=== PATIENT | female | born 1960 | race African-American/Black ===

== ENCOUNTER 2017-01-29 21:51 | Emergency (ER) | payer MEDICAID ==
[~2017-01-29] VITALS: Ht 172.7 cm; Wt 86.2 kg
[2017-01-29 21:51] VITALS: BP_SYST 130
[2017-01-29] MEDS ORDERED: IBUPROFEN 800 MG TABLET PO ONE (23:45)
[2017-01-29] MEDS ORDERED: CEPHALEXIN 500 MG CAPSULE PO ONE (23:45)
[2017-01-29 23:54] VITALS: BP_SYST 130
== END 2017-01-29 23:54 | disposition home or self-care (01) ==
LOC: SED 21:51
DX: L03.011 Cellulitis of right finger (principal)
CPT/HCPCS: 99283

== ENCOUNTER 2018-05-08 11:00 | Emergency (ER) | payer MEDICAID ==
[~2018-05-08] VITALS: Ht 177.8 cm; Wt 86.2 kg
[2018-05-08 11:20] VITALS: BP_SYST 152
[2018-05-08 12:20] VITALS: BP_SYST 152
== END 2018-05-08 13:00 | disposition home or self-care (01) ==
LOC: SED 12:50
DX: H81.10 Benign paroxysmal vertigo, unspecified ear (principal); R05 Cough; R03.0 Elevated blood-pressure reading, without diagnosis of hypertension; Z90.49 Acquired absence of other specified parts of digestive tract
CPT/HCPCS: 81002; 81025; 99283

== ENCOUNTER 2021-06-30 07:09 | Emergency (ER) | payer MEDICAID ==
[~2021-06-30] VITALS: Ht 172.7 cm; Wt 77.1 kg
[2021-06-30 07:21] VITALS: BP_SYST 150
--- NOTE | 2021-06-30 07:45 | NUR ---
Pt. came in with c/o flu like symptoms X 3 days; GIL, cough, sorethroat and diarrhia, rates GIL 8/10 on pain scale and cough non productive
--- NOTE | 2021-06-30 07:47 | NUR ---
ER at bedside examining patient.
--- NOTE | 2021-06-30 07:57 | NUR ---
radiology at bedside
[2021-06-30] MEDS ORDERED: ACETAMINOPHEN 325 MG TABLET ONE (08:14)
[2021-06-30] MEDS ORDERED: ACETAMINOPHEN 325 MG TABLET PO ONE ×2 (08:15)
[2021-06-30] MEDS ORDERED: HYDR120S7 PO (08:39)
--- NOTE | 2021-06-30 08:58 | NUR ---
Pt. still c/o GIL, denies need for anything stronger
[2021-06-30 09:00] VITALS: BP_SYST 141
--- NOTE | 2021-06-30 09:00 | NUR ---
Patient given written and verbal discharge instructions and verbalizes understanding. Dr. Hameed discussed with patient the results and treatment provided. Patient in stable condition. ID arm band removed. Rx of hydrocodone BIT/ HOMATROP given. Patient educated on pain management and to follow up with PMD. Pain Scale 8. Opportunity for questions provided and answered. Medication side effect fact sheet provided.
== END 2021-06-30 09:00 | disposition home or self-care (01) ==
LOC: SED 07:09
DX: J06.9 Acute upper respiratory infection, unspecified (principal); Z20.822 Contact with and (suspected) exposure to COVID-19
CPT/HCPCS: 36415; 71045; 99284